=== PATIENT | male | born 1960 | race Caucasian/White ===

== ENCOUNTER 2017-04-05 16:21 | Inpatient (IN) | payer MEDICAID ==
[~2017-04-05] VITALS: Ht 182.9 cm; Wt 133.5 kg
[2017-04-05] MEDS ORDERED: ASPIRIN 81 MG TABLET CHEW ONE (16:54)
[2017-04-05] MEDS ORDERED: ONDANSETRON 2MG/ML, 2ML ONE (16:54)
[2017-04-05] MEDS ORDERED: ONDANSETRON 2MG/ML, 2ML IVPush ONE (17:00)
[2017-04-05] MEDS ORDERED: DILTIAZEM 125 MG in DEXTROSE 5% 100 ML IV SCH (17:00)
[2017-04-05] MEDS ORDERED: DILTIAZEM 5 MG/ML, 5ML IV ONE (17:00)
[2017-04-05] MEDS ORDERED: SODIUM CHLORIDE FLUSH 10ML SYR IVF ONE (17:00)
[2017-04-05] MEDS ORDERED: ASPIRIN 81 MG TABLET CHEW PO ONE (17:00)
[2017-04-05] MEDS ORDERED: CEFTRIAXONE PMX 1GM/50ML 50 ML ONE (17:16)
[2017-04-05] MEDS ORDERED: DILTIAZEM 5 MG/ML, 5ML ONE (17:17)
[2017-04-05 17:22] LABS: BLOOD UREA NITROGEN 23 mg/dL (7-18)
[2017-04-05 17:45] LABS: IS PT STATUS REG ER OR PRE ER? YES
[2017-04-05] MEDS ORDERED: CEFTRIAXONE PMX 1GM/50ML 50 ML IVPB ONE (18:00)
[2017-04-05] MEDS ORDERED: FILTER 0.22 MICRON FOR AMIODARONE IV PRN (18:30)
[2017-04-05] MEDS ORDERED: AMIODARONE 150 MG in DEXTROSE 5% 100 ML IV ONE (18:30)
[2017-04-05] MEDS ORDERED: AMIODARONE 900 MG in DEXTROSE 5% 500 ML IV PRN (18:30)
[2017-04-05] MEDS ORDERED: AZITHROMYCIN 500 MG in SODIUM CHLORIDE 0.9% 250 ML IVPB ONE (18:30)
[2017-04-05] MEDS ORDERED: SODIUM CHLORIDE FLUSH 10ML SYR IVF PRN (19:00)
[2017-04-05] MEDS ORDERED: ACETAMINOPHEN 325 MG TABLET PO PRN (20:30)
[2017-04-05] MEDS ORDERED: HEPARIN 5,000 UNITS/ML, 1ML SQ SCH (20:30)
[2017-04-05] MEDS ORDERED: BISACODYL 10 MG SUPP PR PRN (20:30)
[2017-04-05] MEDS ORDERED: POLYETHYLENE GLYCOL 17 GM PACKET PO PRN (20:30)
[2017-04-05] MEDS ORDERED: ONDANSETRON 2MG/ML, 2ML IVPush PRN (20:30)
[2017-04-05 22:14] VITALS: BP 134/76
[2017-04-05 23:16] LABS: IS PT STATUS REG ER OR PRE ER? NO
[2017-04-05] MEDS ORDERED: ALBUTEROL SULFATE 2.5 MG/3 ML NPPB PRN (23:30)
[2017-04-05] MEDS ORDERED: OMNIPAQUE 350 MG/ML, 100ML BOTTLE ONE (23:48)
[2017-04-06] MEDS: FUROSEMIDE 20 MG/2 ML IV SCH ×3 (00:10→18:33)
[2017-04-06] MEDS: SODIUM CHLORIDE FLUSH 10ML SYR IVF SCH ×2 (00:11→08:13)
[2017-04-06 01:00] VITALS: BP 131/96
[2017-04-06] MEDS ORDERED: HEPARIN 25,000 UNITS/500ML PMX 500 ML IV PRN (01:30)
[2017-04-06] MEDS ORDERED: HEPARIN 5,000 UNITS/ML, 1ML IV ONE (01:30)
[2017-04-06] MEDS: HEPARIN 25,000 UNITS/500ML PMX 500 ML IV PRN ×2 (01:42→18:40)
[2017-04-06] MEDS: ASPIRIN 81 MG TABLET EC PO SCH (06:10)
[2017-04-06 06:25] LABS: BLOOD UREA NITROGEN 27 mg/dL (7-18)
[2017-04-06 06:29] LABS: IS PT STATUS REG ER OR PRE ER? NO
[2017-04-06] MEDS ORDERED: PNEUMOCOCCAL 23 VACCINE IM-VACC ONE (06:30)
[2017-04-06 06:32] LABS: ASPARTATE AMINO TRANSFERASE 119 U/L (15-37)
[2017-04-06 07:13] VITALS: BP 124/87
[2017-04-06] MEDS: SENNA/DOCUSATE TABLET PO SCH (08:05)
[2017-04-06] MEDS: HEPARIN 5,000 UNITS/ML, 1ML IV PRN (11:51)
[2017-04-06 13:05] VITALS: BP 136/98
[2017-04-06] MEDS ORDERED: DILTIAZEM 5 MG/ML, 5ML IVPush ONE (17:30)
[2017-04-06] MEDS: AMIODARONE 900 MG in DEXTROSE 5% 482 ML IV PRN (18:33)
[2017-04-06 19:39] VITALS: BP 138/93
[2017-04-06] MEDS: GUAIFENESIN/DM 200-20MG, 10ML UDC PO PRN (20:05)
[2017-04-06] MEDS: CEFTRIAXONE PMX 1GM/50ML 50 ML IV SCH (22:34)
[2017-04-06] MEDS: DILTIAZEM 5 MG/ML, 5ML IVPush PRN (23:01)
[2017-04-07] MEDS: DILTIAZEM 5 MG/ML, 5ML IVPush PRN ×2 (00:33→09:14)
[2017-04-07] MEDS: AZITHROMYCIN 500 MG in SODIUM CHLORIDE 0.9% 250 ML IV SCH ×2 (00:37→20:29)
[2017-04-07 01:00] VITALS: BP 110/69
[2017-04-07] MEDS: HEPARIN 5,000 UNITS/ML, 1ML IV PRN ×2 (02:18→16:39)
[2017-04-07 02:36] VITALS: BP 106/78
[2017-04-07] MEDS: BISMUTH SUBSALICYLATE 175 MG/5 ML MAX/STR PO SCH ×6 (03:25→21:00)
[2017-04-07] MEDS: ASPIRIN 81 MG TABLET EC PO SCH (06:11)
[2017-04-07 07:21] VITALS: BP 120/87
[2017-04-07] MEDS: SENNA/DOCUSATE TABLET PO SCH (08:02)
[2017-04-07] MEDS: FUROSEMIDE 20 MG/2 ML IV SCH ×2 (08:02→16:43)
[2017-04-07] MEDS: SODIUM CHLORIDE FLUSH 10ML SYR IVF SCH ×3 (08:04→20:29)
[2017-04-07] MEDS: GUAIFENESIN/DM 200-20MG, 10ML UDC PO PRN ×3 (09:09→22:41)
[2017-04-07] MEDS ORDERED: DIGOXIN 0.25 MG/ML, 2ML IVPush ONE (10:00)
[2017-04-07] MEDS: METOPROLOL TARTRATE 25 MG TABLET PO SCH ×2 (11:00→17:56)
[2017-04-07] MEDS: HEPARIN 25,000 UNITS/500ML PMX 500 ML IV PRN (12:28)
[2017-04-07] MEDS: DIGOXIN 0.25 MG/ML, 2ML IVPush SCH ×2 (13:52→17:56)
[2017-04-07 14:55] VITALS: BP 121/75
[2017-04-07 19:36] VITALS: BP 125/78
[2017-04-07] MEDS ORDERED: TEMAZEPAM 15 MG CAPSULE PO PRN (21:30)
[2017-04-07] MEDS: CEFTRIAXONE PMX 1GM/50ML 50 ML IV SCH (22:31)
[2017-04-07] MEDS: AMIODARONE 900 MG in DEXTROSE 5% 482 ML IV PRN (23:34)
[2017-04-08] MEDS: HEPARIN 25,000 UNITS/500ML PMX 500 ML IV PRN ×2 (01:07→15:10)
[2017-04-08] MEDS: BISMUTH SUBSALICYLATE 175 MG/5 ML MAX/STR PO SCH ×6 (02:22→21:37)
[2017-04-08] MEDS: METOPROLOL TARTRATE 25 MG TABLET PO SCH ×3 (02:58→17:40)
[2017-04-08 04:00] VITALS: BP 145/98
[2017-04-08 05:13] LABS: BLOOD UREA NITROGEN 23 mg/dL (7-18)
[2017-04-08] MEDS: ASPIRIN 81 MG TABLET EC PO SCH (06:16)
[2017-04-08 08:09] VITALS: BP 135/92
[2017-04-08] MEDS: SENNA/DOCUSATE TABLET PO SCH (08:50)
[2017-04-08] MEDS: GUAIFENESIN/DM 200-20MG, 10ML UDC PO PRN ×3 (08:50→22:55)
[2017-04-08] MEDS: SODIUM CHLORIDE FLUSH 10ML SYR IVF SCH ×2 (08:51→21:36)
[2017-04-08] MEDS: FUROSEMIDE 20 MG/2 ML IV SCH ×2 (08:51→17:40)
[2017-04-08] MEDS: AMIODARONE 200 MG TABLET PO SCH ×2 (10:53→21:36)
[2017-04-08] MEDS: LISINOPRIL 10 MG TABLET PO SCH (10:53)
[2017-04-08] MEDS ORDERED: LIDOCAINE 1%, 20ML ONE (15:21)
[2017-04-08 15:57] LABS: CYTOLOGY BODY FLUID RECD INTO PATHOLOGY; CYTOLOGY BODY FLUID SOURCE THORACIC FLUID
[2017-04-08 20:10] VITALS: BP 111/78
[2017-04-08] MEDS: AZITHROMYCIN 500 MG in SODIUM CHLORIDE 0.9% 250 ML IV SCH (20:43)
[2017-04-08] MEDS: TEMAZEPAM 15 MG CAPSULE PO PRN (21:37)
[2017-04-08] MEDS: CEFTRIAXONE PMX 1GM/50ML 50 ML IV SCH (21:37)
[2017-04-09 01:53] VITALS: BP 105/76
[2017-04-09] MEDS: METOPROLOL TARTRATE 25 MG TABLET PO SCH ×3 (01:58→20:46)
[2017-04-09] MEDS: BISMUTH SUBSALICYLATE 175 MG/5 ML MAX/STR PO SCH ×7 (02:00→23:00)
[2017-04-09] MEDS: HEPARIN 25,000 UNITS/500ML PMX 500 ML IV PRN ×2 (04:23→16:52)
[2017-04-09] MEDS: ASPIRIN 81 MG TABLET EC PO SCH (05:57)
[2017-04-09 06:02] LABS: BLOOD UREA NITROGEN 19 mg/dL (7-18)
[2017-04-09 07:40] VITALS: BP 114/63
[2017-04-09] MEDS: AMIODARONE 200 MG TABLET PO SCH ×2 (07:55→20:46)
[2017-04-09] MEDS: LISINOPRIL 10 MG TABLET PO SCH (07:56)
[2017-04-09] MEDS: SENNA/DOCUSATE TABLET PO SCH (07:56)
[2017-04-09] MEDS: SODIUM CHLORIDE FLUSH 10ML SYR IVF SCH ×2 (07:56→20:47)
[2017-04-09] MEDS: DIGOXIN 0.25 MG TABLET PO SCH (07:56)
[2017-04-09] MEDS: FUROSEMIDE 20 MG/2 ML IV SCH ×2 (07:57→16:48)
[2017-04-09] MEDS: GUAIFENESIN/DM 200-20MG, 10ML UDC PO PRN ×3 (08:02→23:01)
[2017-04-09 11:45] VITALS: BP 110/70
[2017-04-09 14:00] VITALS: BP 110/68
[2017-04-09 19:11] VITALS: BP 125/71
[2017-04-09] MEDS: AZITHROMYCIN 500 MG in SODIUM CHLORIDE 0.9% 250 ML IV SCH (20:46)
[2017-04-09] MEDS: CEFTRIAXONE PMX 1GM/50ML 50 ML IV SCH (20:47)
[2017-04-09] MEDS ORDERED: POLYETHYLENE GLYCOL 17 GM PACKET PO PRN (22:00)
[2017-04-09] MEDS ORDERED: BISACODYL 10 MG SUPP PR PRN (22:00)
[2017-04-09] MEDS: TEMAZEPAM 15 MG CAPSULE PO PRN (23:01)
[2017-04-10 02:44] VITALS: BP 117/84
[2017-04-10] MEDS: ASPIRIN 81 MG TABLET EC PO SCH (03:45)
[2017-04-10] MEDS: METOPROLOL TARTRATE 25 MG TABLET PO SCH ×3 (03:46→18:09)
[2017-04-10] MEDS: BISMUTH SUBSALICYLATE 175 MG/5 ML MAX/STR PO SCH ×3 (03:46→08:54)
[2017-04-10 05:46] LABS: BLOOD UREA NITROGEN 19 mg/dL (7-18)
[2017-04-10] MEDS: HEPARIN 5,000 UNITS/ML, 1ML IV PRN (06:32)
[2017-04-10] MEDS: GUAIFENESIN/DM 200-20MG, 10ML UDC PO PRN ×4 (06:32→23:56)
[2017-04-10] MEDS: HEPARIN 25,000 UNITS/500ML PMX 500 ML IV PRN ×2 (07:39→20:20)
[2017-04-10 07:48] VITALS: BP 130/83
[2017-04-10] MEDS: AMIODARONE 200 MG TABLET PO SCH ×2 (08:48→20:18)
[2017-04-10] MEDS: DIGOXIN 0.25 MG TABLET PO SCH (08:49)
[2017-04-10] MEDS: LISINOPRIL 10 MG TABLET PO SCH (08:49)
[2017-04-10] MEDS: SENNA/DOCUSATE TABLET PO SCH (08:50)
[2017-04-10] MEDS: FUROSEMIDE 20 MG/2 ML IV SCH ×2 (08:52→18:09)
[2017-04-10] MEDS: SODIUM CHLORIDE FLUSH 10ML SYR IVF SCH ×2 (08:53→20:18)
[2017-04-10 14:00] VITALS: BP 107/74
[2017-04-10 19:31] VITALS: BP 122/66
[2017-04-10] MEDS: AZITHROMYCIN 500 MG in SODIUM CHLORIDE 0.9% 250 ML IV SCH (20:18)
[2017-04-10] MEDS: CEFTRIAXONE PMX 1GM/50ML 50 ML IV SCH (23:56)
[2017-04-10] MEDS: TEMAZEPAM 15 MG CAPSULE PO PRN (23:56)
[2017-04-11 02:13] VITALS: BP 117/79
[2017-04-11] MEDS: METOPROLOL TARTRATE 25 MG TABLET PO SCH ×3 (03:00→21:17)
[2017-04-11 05:56] LABS: BLOOD UREA NITROGEN 17 mg/dL (7-18)
[2017-04-11] MEDS: ASPIRIN 81 MG TABLET EC PO SCH (06:27)
[2017-04-11] MEDS: HEPARIN 5,000 UNITS/ML, 1ML IV PRN (06:28)
[2017-04-11 08:20] VITALS: BP 117/65
[2017-04-11] MEDS: HEPARIN 25,000 UNITS/500ML PMX 500 ML IV PRN (09:31)
[2017-04-11] MEDS: FUROSEMIDE 20 MG/2 ML IV SCH ×2 (09:33→17:45)
[2017-04-11] MEDS: SODIUM CHLORIDE FLUSH 10ML SYR IVF SCH ×2 (09:35→21:17)
[2017-04-11] MEDS: SENNA/DOCUSATE TABLET PO SCH (09:36)
[2017-04-11] MEDS: LISINOPRIL 10 MG TABLET PO SCH (09:36)
[2017-04-11] MEDS: DIGOXIN 0.25 MG TABLET PO SCH (09:36)
[2017-04-11] MEDS: AMIODARONE 200 MG TABLET PO SCH ×2 (09:37→21:17)
[2017-04-11] MEDS: GUAIFENESIN/DM 200-20MG, 10ML UDC PO PRN ×3 (10:05→23:31)
[2017-04-11 11:54] VITALS: BP 126/93
[2017-04-11 12:42] VITALS: BP 134/92
[2017-04-11 19:26] VITALS: BP 118/81
[2017-04-11] MEDS: AZITHROMYCIN 500 MG in SODIUM CHLORIDE 0.9% 250 ML IV SCH (21:17)
[2017-04-11] MEDS: TEMAZEPAM 15 MG CAPSULE PO PRN (23:02)
[2017-04-11] MEDS: CEFTRIAXONE PMX 1GM/50ML 50 ML IV SCH (23:03)
[2017-04-11] MEDS: ACETAMINOPHEN 325 MG TABLET PO PRN (23:03)
[2017-04-12 01:23] VITALS: BP 106/67
[2017-04-12] MEDS: ASPIRIN 81 MG TABLET EC PO SCH (03:49)
[2017-04-12] MEDS: METOPROLOL TARTRATE 25 MG TABLET PO SCH ×2 (03:50→11:26)
[2017-04-12 08:54] VITALS: BP 121/75
[2017-04-12] MEDS ORDERED: AMIODARONE 200 MG TABLET PO SCH (09:00)
[2017-04-12] MEDS ORDERED: DABIGATRAN 150 MG CAPSULE PO SCH (09:00)
[2017-04-12] MEDS: FUROSEMIDE 20 MG/2 ML IV SCH (09:02)
[2017-04-12] MEDS: SENNA/DOCUSATE TABLET PO SCH (09:03)
[2017-04-12] MEDS: SODIUM CHLORIDE FLUSH 10ML SYR IVF SCH (09:03)
[2017-04-12] MEDS: DIGOXIN 0.25 MG TABLET PO SCH (09:04)
[2017-04-12] MEDS: ACETAMINOPHEN 325 MG TABLET PO PRN (09:04)
[2017-04-12] MEDS: LISINOPRIL 10 MG TABLET PO SCH (09:04)
[2017-04-12 11:25] VITALS: BP 125/72
[2017-04-12] MEDS: GUAIFENESIN/DM 200-20MG, 10ML UDC PO PRN (11:25)
[2017-04-12] MEDS ORDERED: CEFD300C37 PO (12:56)
[2017-04-12] MEDS ORDERED: FURO-92 PO (12:56)
[2017-04-12] MEDS ORDERED: DIGO250T PO (12:56)
[2017-04-12] MEDS ORDERED: DOXY100T PO (12:56)
[2017-04-12] MEDS ORDERED: AMIO200T42 PO (12:56)
[2017-04-12] MEDS ORDERED: DABI150C PO (12:56)
[2017-04-12] MEDS ORDERED: METO25TA35 PO (12:56)
[2017-04-12] MEDS ORDERED: LISI-167 PO (12:56)
[2017-04-12] MEDS ORDERED: ASPI-621 PO (12:56)
[2017-04-12 15:11] VITALS: BP 130/96
[2017-04-12] MEDS ORDERED: SPIR25TA PO (16:09)
== END 2017-04-12 18:00 | disposition home health service (06) | DRG 175 ==
LOC: ED 19:21 → EDIP 19:37 → 5SO 22:02 → DCLOUNGE 04-12 16:44
PROVIDERS: ADMIT Internal Medicine; ATTEND Internal Medicine
PROC: 0W9B3ZZ Drainage of Left Pleural Cavity, Percutaneous Approach (ICD-10-PCS; principal; 2017-04-08)
DX: I26.99 Other pulmonary embolism without acute cor pulmonale (principal); J18.9 Pneumonia, unspecified organism; I50.21 Acute systolic (congestive) heart failure; J44.0 Chronic obstructive pulmonary disease with (acute) lower respiratory infection; L03.90 Cellulitis, unspecified; I42.9 Cardiomyopathy, unspecified; I11.0 Hypertensive heart disease with heart failure; I48.91 Unspecified atrial fibrillation; E66.01 Morbid (severe) obesity due to excess calories; F10.20 Alcohol dependence, uncomplicated; Z68.39 Body mass index [BMI] 39.0-39.9, adult; Z87.891 Personal history of nicotine dependence; Z82.49 Family history of ischemic heart disease and other diseases of the circulatory system
CPT/HCPCS: 32555; 36415; 71010; 71275; 80048; 80053; 80061; 80076; 82040; 82042; 83605; 83615; 83735; 83880; 84145; 84443; 84484; 85025; 85520; 85610; 87040; 87070; 87075; 87205; 88112; 88305; 89051; 93005; 93306; 93970; 94640; 96365; 96375; J0456; J0696; J1644; J2405; J3490; J7613; Q9967; J0282; J1160; J1940; J7050; J7060

== ENCOUNTER → 2017-12-15 | Outpatient (CLI) | payer MEDICAID ==
[~2017-12-15] MED LIST: AMIO200T42 PO; ASPI-621 PO; CEFD300C37 PO; DABI150C PO; DIGO250T PO; DOXY100T PO; FURO-92 PO; LISI-167 PO; METO25TA35 PO; SPIR25TA PO
== END | disposition home or self-care (01) ==
LOC: CVU 10:53
PROVIDERS: ATTEND Internal Medicine Cardiovascular Disease
DX: I42.8 Other cardiomyopathies (principal); I48.91 Unspecified atrial fibrillation
CPT/HCPCS: 93306

== ENCOUNTER → 2018-02-15 | Outpatient (CLI) | payer MEDICAID ==
[~2018-02-15] MED LIST changes: +ASPI-496 PO; +DOCU100T3 PO; +FISH1CAP PO; +LISI5TAB7 PO; +MELA1TAB22 PO; +TRAZ50TA18 PO; +levothyroxine PO
[2018-02-15 14:31] LABS: BASOPHILS # (AUTO) 0.04 x10^3/uL (0-0.1); BASOPHILS % (AUTO) 1 % (0-1); EOSINOPHILS # (AUTO) 0.73 x10^3/uL (0-0.4); EOSINOPHILS % (AUTO) 9 % (1-7); LYMPHOCYTES # (AUTO) 1.49 x10^3/uL (1-3.4); LYMPHOCYTES % (AUTO) 19 % (22-44); MD NO; MEAN CORPUSCULAR HEMOGLOBIN 31.7 pg (27.5-34.5); MEAN CORPUSCULAR HGB CONC 33.7 g/dL (33.2-36.2); MEAN CORPUSCULAR VOLUME 94.2 fL (81-97); MEAN PLATELET VOLUME 8.7 fL (7.4-10.4); MONOCYTES # (AUTO) 0.52 x10^3/uL (0.2-0.8); MONOCYTES % (AUTO) 7 % (2-9); NEUTROPHILS # (AUTO) 5.14 x10^3/uL (1.8-6.8); NEUTROPHILS % (AUTO) 65 % (42-75); PLATELET COUNT 217 x10^3/uL (130-400); RED BLOOD COUNT 4.94 x10^6/uL (4.38-5.82); RED CELL DISTRIBUTION WIDTH 14.1 % (9.4-14.8)
[2018-02-15 14:36] LABS: INTERNATIONAL NORMALIZED RATIO 1.16 (0.93-1.1)
[2018-02-15 14:39] LABS: ANION GAP 8 mmol/L (5-15); CALCIUM 9.4 mg/dL (8.5-10.1); CHLORIDE 106 mmol/L (98-107)
[2018-02-15 14:40] LABS: ALBUMIN 3.8 g/dL (3.4-5.0)
[2018-02-15 14:43] LABS: ALANINE AMINOTRANSFERASE 37 U/L (12-78); ALKALINE PHOSPHATASE 61 U/L (45-117); BILIRUBIN,TOTAL 0.4 mg/dL (0.2-1.0); CREATININE 1.09 mg/dL (0.7-1.3); TOTAL PROTEIN 7.7 g/dL (6.4-8.2)
== END | disposition home or self-care (01) ==
LOC: STAR 13:34
PROVIDERS: ATTEND Internal Medicine Cardiovascular Disease
DX: Z01.818 Encounter for other preprocedural examination (principal); I48.91 Unspecified atrial fibrillation; R00.2 Palpitations
CPT/HCPCS: 36415; 80053; 85025; 85610; 85730

== ENCOUNTER → 2018-02-15 | Outpatient (CLI) | payer MEDICAID ==
[~2018-02-15] MED LIST changes: +OMNIPAQUE 350 MG/ML, 150 ML BOTTLE ONE
== END | disposition home or self-care (01) ==
LOC: CFH 12:11
PROVIDERS: ATTEND Internal Medicine Cardiovascular Disease
DX: I48.91 Unspecified atrial fibrillation (principal); I25.10 Atherosclerotic heart disease of native coronary artery without angina pectoris; J98.11 Atelectasis; J98.4 Other disorders of lung
CPT/HCPCS: 71046; 75572; Q9967

== ENCOUNTER 2018-02-23 06:17 | Observation (INO) | payer MEDICAID ==
[2018-02-15 13:53] VITALS: BP 140/86
[~2018-02-23] VITALS: Ht 182.9 cm; Wt 116.8 kg
[~2018-02-23 06:17] MED LIST changes: -OMNIPAQUE 350 MG/ML, 150 ML BOTTLE ONE
[2018-02-23] MEDS ORDERED: SODIUM CHLORIDE 0.9% 1,000 ML IV SCH ×2 (06:33→07:00)
[2018-02-23] MEDS ORDERED: MIDAZOLAM 1 MG/ML, 5ML ONE (07:40)
[2018-02-23] MEDS ORDERED: FENTANYL PF 250 MCG/5ML ONE (07:40)
[2018-02-23] MEDS ORDERED: PROPOFOL 10 MG/ML, 20ML ONE (07:58)
[2018-02-23] MEDS ORDERED: ROCURONIUM 10 MG/ML,10ML ONE (07:58)
[2018-02-23] MEDS ORDERED: DEXAMETHASONE 4 MG/ML, 1ML ONE (07:58)
[2018-02-23] MEDS ORDERED: SUCCINYLCHOLINE 20 MG/ML, 10ML ONE (07:58)
[2018-02-23] MEDS ORDERED: DIPHENHYDRAMINE 50 MG/ML, 1ML ONE (07:58)
[2018-02-23] MEDS ORDERED: LIDOCAINE/PF 1%, 30ML ONE (08:20)
[2018-02-23] MEDS ORDERED: HEPARIN 1,000 UNITS/ML, 10ML ONE ×2 (08:50→09:56)
[2018-02-23] MEDS ORDERED: PROTAMINE SULFATE 10 MG/ML, 5ML ONE (10:29)
[2018-02-23] MEDS ORDERED: SCOPOLAMINE PATCH, 1.5MG PATCH.TD72 TD PRN (11:30)
[2018-02-23] MEDS ORDERED: ALBUTEROL SULFATE 2.5 MG/3 ML NPPB PRN (11:30)
[2018-02-23] MEDS ORDERED: FENTANYL PF 100 MCG/2ML IV PRN (11:30)
[2018-02-23] MEDS ORDERED: MEPERIDINE/PF 25MG/0.5ML IVPush PRN (11:30)
[2018-02-23] MEDS ORDERED: OXYcodone 5 MG/5 ML ORAL.SOL UDC PO PRN (11:30)
[2018-02-23] MEDS ORDERED: LABETALOL 5MG/ML, 20ML IV PRN (11:30)
[2018-02-23] MEDS ORDERED: hydrALAzine 20 MG/ML, 1ML IV PRN (11:30)
[2018-02-23] MEDS ORDERED: ONDANSETRON ODT 8 MG PO PRN (11:30)
[2018-02-23] MEDS ORDERED: PROMETHAZINE 25 MG/ML, 1ML IM PRN (11:30)
[2018-02-23] MEDS ORDERED: PROMETHAZINE 12.5 MG SUPP PR PRN (11:30)
[2018-02-23] MEDS ORDERED: MORPHINE SULFATE 4 MG/ML, 1ML IVPush PRN (11:30)
[2018-02-23] MEDS ORDERED: MIDAZOLAM 1 MG/ML, 2ML IV PRN (11:30)
[2018-02-23] MEDS ORDERED: ACETAMINOPHEN 325 MG TABLET PO PRN (11:30)
[2018-02-23 13:05] VITALS: BP 101/62
[2018-02-23] MEDS ORDERED: FUROSEMIDE 40 MG TABLET ONE (13:42)
[2018-02-23] MEDS ORDERED: DABIGATRAN 150 MG CAPSULE ONE (13:42)
[2018-02-23] MEDS: DABIGATRAN 150 MG CAPSULE PO SCH ×2 (13:45→23:52)
[2018-02-23] MEDS: FUROSEMIDE 40 MG TABLET PO SCH (13:45)
[2018-02-23] MEDS ORDERED: DOCUSATE 50 MG/5 ML, 10ML UDC PO PRN (17:00)
[2018-02-23] MEDS: METOPROLOL TARTRATE 25 MG TABLET PO SCH (17:41)
[2018-02-23 19:23] VITALS: BP 115/71
[2018-02-23] MEDS ORDERED: SPIRONOLACTONE 25 MG TABLET PO SCH (21:00)
[2018-02-23] MEDS ORDERED: TRAZODONE 50MG TABLET PO SCH (21:00)
[2018-02-24 00:30] VITALS: BP 114/67
[2018-02-24 05:55] VITALS: BP 119/69
[2018-02-24] MEDS: METOPROLOL TARTRATE 25 MG TABLET PO SCH (05:56)
[2018-02-24] MEDS ORDERED: ASPIRIN 81 MG TABLET EC PO SCH (06:00)
[2018-02-24] MEDS: FUROSEMIDE 40 MG TABLET PO SCH (07:38)
[2018-02-24 07:40] VITALS: BP 120/65
[2018-02-24] MEDS ORDERED: SPIRONOLACTONE 25 MG TABLET PO SCH (09:00)
[2018-02-24] MEDS ORDERED: DIGOXIN 0.25 MG TABLET PO SCH (09:00)
[2018-02-24] MEDS ORDERED: FUROSEMIDE 40 MG TABLET PO SCH (09:00)
[2018-02-24] MEDS: DABIGATRAN 150 MG CAPSULE PO SCH (09:36)
[2018-02-24 13:12] VITALS: BP 125/72
[2018-02-24] MEDS ORDERED: IBUPROFEN 200 MG TABLET PO ONE (13:30)
== END 2018-02-24 14:53 | disposition home or self-care (01) ==
LOC: CACL 06:17 → 5SO 16:06 → CACL 22:35 → INTOOBSV 22:35 → DCLOUNGE 02-24 14:41
PROVIDERS: ADMIT Internal Medicine Cardiovascular Disease; ATTEND Internal Medicine Cardiovascular Disease
DX: I48.91 Unspecified atrial fibrillation (principal); I48.92 Unspecified atrial flutter; I10 Essential (primary) hypertension; Z79.01 Long term (current) use of anticoagulants
CPT/HCPCS: 85347; 93005; 93308; 93312; 93321; 93325; 93613; 93655; 93656; 93662; C1730; C1731; C1759; C1766; C1893; C1894; C2630; G0378; J0330; J1100; J1200; J1644; J2250; J2704; J2720; J3010; J3490; 93621